=== PATIENT | male | born 1935 | race Caucasian/White ===

== ENCOUNTER 2017-06-24 17:28 | Emergency (ER) | END 2017-06-24 18:54 | disposition left against medical advice (07) ==

== ENCOUNTER 2017-11-28 07:51 | Inpatient (IN) | END 2017-12-02 12:30 | disposition home health service (06) | DRG 292 ==

== ENCOUNTER 2018-06-25 09:41 | Observation (INO) | payer MEDICARE, OTHER ==
[~2018-06-25] VITALS: Ht 160 cm; Wt 89.0 kg
[~2018-06-25 09:41] MED LIST: APIX5TAB PO; ASPI-817 PO; CARV12.579 PO; CELE200C PO; DIGO125T PO; FURO40TA4 PO; HYDR-4011 PO; LEVO50TA7 PO; LINA5TAB PO; LISI-313 NGT; METF500T24 PO; NITR0.4T32 SL; ONDA4SOL2 PO; RSV10T PO; TRAM50TA2 PO
[2018-06-25] MEDS ORDERED: LOSA25TA12 ORAL (11:32)
[2018-06-25] MEDS ORDERED: ONDA4TAB14 PO (11:32)
[2018-06-25] MEDS ORDERED: CRES20 PO (11:33)
[2018-06-25] MEDS ORDERED: SPIR25TA PO (11:35)
--- NOTE | 2018-06-25 13:47 | ERD ---
ER Documentation Chief Complaint Chief Complaint PT with intermittent non radiating CP X 15 days, worst today. HPI This is an 82-year-old male with a past medical history of hypertension, hyperlipidemia, diabetes, CHF with an ejection fraction of 35%, mitral and tricuspid valve regurgitation, atrial fibrillation who is presenting for approximately 2 weeks of intermittent waxing and waning mid substernal nonradiating aching pressure-like chest pain, worse last night. The patient endorses some shortness of breath. He is also been fatigued and lightheaded, worsening over the last several weeks. The patient does not endorse any alleviating or exacerbating factors. It is nonexertional. The patient denies feeling sick recently. The patient denies fever or chills. The patient has had no headache or vision changes. The patient does not endorse neck or back pain. The patient denies nausea or vomiting. The patient denies abdominal pain. The patient denies changes to bowel movements or urination. The patient has had no focal deficits. The patient has had no weakness or numbness or tingling to the face or extremities. ROS All systems reviewed and are negative except as per history of present illness. Medications Home Meds Active Scripts Levothyroxine Sodium* (Levothyroxine Sodium*) 50 Mcg Tablet, 50 MCG PO BEFORE BREAKFAST for 30 Days, #30 TAB Prov:SIS ROLLINS MD 12/02/17 Digoxin* (Digitek*) 125 Mcg Tablet, 0.125 MG PO DAILY@13 for 30 Days, #30 TAB 6 Refills Prov:SIS ROLLINS MD 12/02/17 Apixaban* (Eliquis*) 5 Mg Tablet, 5 MG PO BID for 30 Days, #60 TAB 6 Refills Prov:SIS ROLLINS MD 12/02/17 Reported Medications Spironolactone* (Aldactone*) 25 Mg Tablet, 25 MG PO BID, #60 TAB 06/25/18 Rosuvastatin Calcium* (Crestor*) 20 Mg Tablet, 20 MG PO QHS, #30 TAB 06/25/18 Ondansetron (Ondansetron Odt) 4 Mg Tab.rapdis, 4 MG PO Q6H PRN for NAUSEA AND/OR VOMITING, TAB 06/25/18 Losartan Potassium* (Losartan Potassium*) 25 Mg Tablet, 1 TAB ORAL DAILY 06/25/18 Nitroglycerin* (Nitroglycerin* SL) 0.4 Mg Tab.subl, 0.4 MG SL Q5MIN PRN for CHEST PAIN, BOTTLE 11/28/17 Metformin Hcl* (Metformin Hcl*) 500 Mg Tablet, 500 MG PO WITH BREAKFAST, #30 TAB 11/28/17 Discontinued Reported Medications Tramadol HCl (Tramadol HCl) 50 Mg Tablet, 50 MG PO Q8H PRN for PAIN LEVEL 1-5, #120 TAB 11/28/17 Aspirin* (Aspirin* EC) 81 Mg Tablet.dr, 81 MG PO DAILY, TAB 11/28/17 Linagliptin (TRADJENTA) 5 Mg Tablet, 5 MG PO, TAB 11/28/17 Celecoxib* (Celebrex*) 200 Mg Capsule, 200 MG PO BID, CAP 11/28/17 Rosuvastatin Calcium* (Crestor*) 10 Mg Tablet, 10 MG PO QHS, #30 TAB 11/28/17 Hydrocodone/Acetaminophen (Sanderson 5-325 Tablet) 1 Each Tablet, 1 EACH PO Q6 PRN for PAIN, TAB 11/28/17 Ondansetron HCl (Zofran) 4 Mg/5 Ml Solution, 4 MG PO Q8 PRN for NAUSEA 11/28/17 Discontinued Scripts Furosemide* (Furosemide*) 40 Mg Tablet, 40 MG PO DAILY for 30 Days, #30 TAB 6 Refills Prov:SIS ROLLINS MD 12/02/17 Lisinopril* (Lisinopril*) 5 Mg Tablet, 5 MG NGT DAILY for 30 Days, #30 TAB 6 Refills Prov:SIS ROLLINS MD 12/02/17 Carvedilol* (Carvedilol*) 12.5 Mg Tablet, 12.5 MG PO BID for 30 Days, #60 TAB 6 Refills Prov:SIS ROLLINS MD 12/02/17 Allergies Allergies: Coded Allergies: No Known Allergy (Unverified , 06/25/18) PMhx/Soc Medical and Surgical Hx: pt denies Surgical Hx History of Surgery: No Anesthesia Reaction: No Hx Neurological Disorder: No Hx Respiratory Disorders: No Hx Cardiac Disorders: Yes (Hypertension, hyperlipidemia, diabetes, heart failure with an EF of 35%, atrial fibrillation) Hx Psychiatric Problems: No Hx Miscellaneous Medical Probl: Yes (Hypothyroidism) Hx Alcohol Use: No Hx Substance Use: No Hx Tobacco Use: No Smoking Status: Former smoker FmHx Family History: No diabetes Physical Exam Vitals Vital Signs Date Temp Pulse Resp B/P (MAP) Pulse Ox O2 O2 Flow FiO2 Time Delivery Rate 06/25/18 97.7 83 16 110/97 100 Room Air 14:00 (101) 06/25/18 89 121/83 100 11:41 (96) 06/25/18 Nasal 3 11:04 Cannula 06/25/18 97.7 69 18 172/71 97 09:45 (104) Physical Exam Const: No apparent distress, well-developed, well-nourished Head: Normocephalic, Atraumatic Eyes: Normal Conjunctiva. Extraocular movements intact. Pupils equal, round and reactive to light ENT: Normal External Ears, Nose and Mouth. Neck: Full range of motion. No meningismus. Resp: Bibasilar rales. No wheezes or rhonchi Cardio: Irregular regular rhythm. Regular rate. No murmurs, rubs or gallops Abd: Soft, non tender, non distended. Normal bowel sounds Skin: No petechiae or rashes Back: No midline tenderness. No CVA tenderness Ext: No cyanosis. Bilateral lower extremity 1+ pitting edema. Neur: Awake and alert, oriented 4. Cranial nerves intact. No facial droop. Normal strength, sensation and coordination. Psych: Normal Mood and Affect Result Diagram: 06/25/18 1100 06/25/18 1100 Results 24 hrs Laboratory Tests Test 06/25/18 11:00 White Blood Count 6.4 10^3/ul Red Blood Count 4.53 10^6/ul Hemoglobin 14.3 g/dl Hematocrit 42.3 % Mean Corpuscular Volume 93.4 fl Mean Corpuscular Hemoglobin 31.6 pg Mean Corpuscular Hemoglobin Concent 33.8 g/dl Red Cell Distribution Width 13.7 % Platelet Count 134 10^3/UL Mean Platelet Volume 10.5 fl Immature Granulocytes % 0.600 % Neutrophils % 70.7 % Lymphocytes % 17.9 % Monocytes % 7.9 % Eosinophils % 2.4 % Basophils % 0.5 % Nucleated Red Blood Cells % 0.0 /100WBC Immature Granulocytes # 0.040 10^3/ul Neutrophils # 4.5 10^3/ul Lymphocytes # 1.1 10^3/ul Monocytes # 0.5 10^3/ul Eosinophils # 0.2 10^3/ul Basophils # 0.0 10^3/ul Nucleated Red Blood Cells # 0.0 10^3/ul Prothrombin Time 14.6 Sec Prothrombin Time Ratio 1.1 INR International Normalized Ratio 1.13 Sodium Level 141 mmol/L Potassium Level 4.6 mmol/L Chloride Level 104 mmol/L Carbon Dioxide Level 29 mmol/L Anion Gap 8 Blood Urea Nitrogen 29 mg/dl Creatinine 1.12 mg/dl Est Glomerular Filtrat Rate mL/min mL/min Glucose Level 140 mg/dl Calcium Level 9.7 mg/dl Troponin I < 0.012 ng/ml B-Type Natriuretic Peptide 349 PG/ML Procedures/MDM MDM The patient's presentation warrants further investigation. Previous medical records, if available, were reviewed. LABS The patient's laboratory testing was obtained and reviewed. No emergent treatment was required unless described below. CBC: No E/o systemic infection or severe anemia. Mild thrombocytopenia. Chemistry: No E/o severe acidosis or alkalosis or renal failure or diabetic ketoacidosis. Elevated BUN, potentially related to intravascular depletion from diuresis from heart failure. PT/INR: No E/o significant coagulopathy Troponin: No E/o acute ischemia BNP: No E/o heart failure EKG EKG read by me: Rate/Rhythm: Atrial fibrillation at 100 bpm. Intervals: Normal QRS and QTc. No P waves. [place]: Normal Impression: No evidence of acute ischemia. Atrial fibrillation IMAGING Imaging and Radiology interpretation reviewed. CXR FINDINGS: There is mild cardiomegaly. There is mild pulmonary vascular conges tion. There are bilateral perihilar and lower lobe increased interstitial changes. There is no pleural effusion. There is mild elevation of the right diaphragm. The thoracic aorta is calcified. There is no pneumothorax. IMPRESSION: Mild cardiomegaly with pulmonary vascular congestion. Electronically viewed and signed by Chinmay Hector MD on 06/25/2018 11:36 TREATMENT/DISPOSITION The patient presents for chest pain, shortness of breath and increasing fatigue. I do not suspect acute coronary syndrome given the negative troponin and lack of significant ischemic changes on the EKG. That said, I did opt to give the patient does of aspirin as he is complaining of chest pain. I am also concerned about worsening heart failure. The patient's symptoms have been progressively getting worse over the last 2 weeks. The patient's family has attempted to control his symptoms at home, but they feel that they are no longer able to do so. The patient's BNP is unremarkable. However, there is evidence of heart failure clinically and radiographically. The patient has significant cardiac disease, and I do not feel that the patient can be managed in an outpatient setting. The patient was given a dose of Lasix in the emergency department. The patient's chest xray does not reveal pneumonia or pneumothorax or pleural effusions. The patient does not have a widened mediastinum and does not have signs or symptoms concerning for thoracic aortic aneurysm or dissection. The patient does not have pneumomediastinum or signs concerning for esophageal tear or rupture. The patient has no clinical or radiographic signs of pericardial effusion or tamponade. The patient does not have pneumoperitoneum and I have decreased suspicion of viscus perforation as possible referred pain. The patient does not have a diagnosis of COPD and is not wheezing today. The patient is not tachypneic or hypoxic. The patient is breathing comfortably and without pleuritic pain. The patient is not on hormonal therapy. The patient has no history of clotting or bleeding disorders. The patient has no calf tenderness. The patient has had no hemoptysis. I have decreased suspicion for PE. ADMISSION At this time, I feel that the patient requires admission for further evaluation and management. The patient will be admitted to panel in accordance with the patient's insurance. The patient was accepted by Dr. Duarte at 2:39 PM on June 25, 2018. Disclaimer: Inadvertent spelling and grammatical errors are likely due to EHR/dictation software use and do not reflect on the overall quality of patient care. Note that the electronic time recorded on this note does not necessarily reflect the actual time of the patient encounter. Departure Diagnosis: Primary Impression: Chest pain Chest pain type: unspecified Qualified Codes: R07.9 - Chest pain, unspecified Additional Impressions: CHF (congestive heart failure) Heart failure type: unspecified Heart failure chronicity: acute on chronic Qualified Codes: I50.9 - Heart failure, unspecified Thrombocytopenia Atrial fibrillation Atrial fibrillation type: unspecified Qualified Codes: I48.91 - Unspecified atrial fibrillation Elevated BUN Failure to thrive in adult Condition: RAÚL Shell MD June 25, 2018 13:47
[2018-06-25] MEDS ORDERED: ACETAMINOPHEN 325 MG TAB PO PRN ×2 (15:00)
[2018-06-25] MEDS ORDERED: NACL 0.9% 3 ML SYG IV SCH (15:00)
[2018-06-25] MEDS ORDERED: NITROGLYCERIN (SL) 0.4 MG TAB SL PRN (15:00)
[2018-06-25] MEDS ORDERED: HYDROCODONE/APAP (5/325) TAB PO PRN (15:00)
[2018-06-25] MEDS ORDERED: BISACODYL (EC) 5 MG TAB PO PRN (15:00)
[2018-06-25] MEDS ORDERED: ONDANSETRON 4 MG INJ IV PRN (15:00)
[2018-06-25] MEDS ORDERED: FUROSEMIDE 40 MG INJ IV ONE (15:00)
[2018-06-25] MEDS ORDERED: ALBUTEROL/IPRATROPIUM (NEB) 3 ML AMP HHN PRN (15:00)
[2018-06-25] MEDS ORDERED: ASPIRIN 81 MG TAB PO ONE (15:00)
[2018-06-25] MEDS ORDERED: morphine 2 MG INJ IV PRN (15:00)
--- NOTE | 2018-06-25 15:09 | HP ---
Date/Time of Note Date/Time of Note DATE: 06/25/18 TIME: 15:09 Assessment/Plan VTE Prophylaxis Pharmacological prophylaxis: other Assessment/Plan Hospital Course Patient is a male with a past medical history significant for CHF with ejection fraction of 35%, mitral and tricuspid valve regurgitation, hypertension, this lipidemia, diabetes mellitus, A. fib on Eliquis who presents to [facility] for 2 weeks of intermittent chest pain. Patient states the pain is worse at night, nonradiating, substernal, some shortness of breath with exertion. Patient also feels occasionally weak and lightheaded and has been progressively getting worse. Patient denies dizziness, syncope, abdominal pain, nausea, vomiting, leg pain, bowel or bladder dysfunction. Objective Physical exam General: Patient is laying in bed and answers questions appropriately Mentation: Patient is alert and oriented 4, Head: Normocephalic atraumatic Eyes: EOMI, pupils reactive to light Neck: Supple, nontender, midline Respiratory: Clear to auscultation bilaterally Cardiovascular: regular rate, no obvious murmurs Gastrointestinal: non-tender to palpation, bowel sounds heard. Neurological: Moves all extremities spontaneously Skin: No new skin lesions Assessment and plan Chest pain -Rule out ACS -Cardiology consulted -Trend troponins -Echo -EKG noted -Statin, aspirin CHF -Mild shortness of breath, Lasix given in the ED -Questionable exacerbation -We will defer to cardiology for additional continue diuretics -BNP very mildly elevated however chest xray does show some edema -Patient not having significant respiratory distress or any respiratory distress at this point. Acute hypoxic respiratory distress -Significantly resolved -Likely secondary to above CHF and chest pain -DuoNeb, budesonide A. fib -Continue Eliquis -Rate controlled Diabetes mellitus negative insulin while in house Hypertension -Continue home meds Dyslipidemia -Continue home meds Disposition -Continue nebulizers, awaiting cardiology consultation, PT evaluation Result Diagram: 06/25/18 1100 06/25/18 1100 Results 24hrs Laboratory Tests Test 06/25/18 11:00 White Blood Count 6.4 # Red Blood Count 4.53 L Hemoglobin 14.3 Hematocrit 42.3 Mean Corpuscular Volume 93.4 Mean Corpuscular Hemoglobin 31.6 Mean Corpuscular Hemoglobin Concent 33.8 Red Cell Distribution Width 13.7 Platelet Count 134 L Mean Platelet Volume 10.5 H Immature Granulocytes % 0.600 H Neutrophils % 70.7 Lymphocytes % 17.9 Monocytes % 7.9 Eosinophils % 2.4 Basophils % 0.5 Nucleated Red Blood Cells % 0.0 Immature Granulocytes # 0.040 H Neutrophils # 4.5 Lymphocytes # 1.1 Monocytes # 0.5 Eosinophils # 0.2 Basophils # 0.0 Nucleated Red Blood Cells # 0.0 Prothrombin Time 14.6 Prothrombin Time Ratio 1.1 INR International Normalized Ratio 1.13 Sodium Level 141 Potassium Level 4.6 Chloride Level 104 Carbon Dioxide Level 29 Anion Gap 8 Blood Urea Nitrogen 29 H Creatinine 1.12 Est Glomerular Filtrat Rate mL/min Glucose Level 140 Calcium Level 9.7 Troponin I < 0.012 B-Type Natriuretic Peptide 349 HPI/ROS Admit Date/Time Admit Date/Time PMH/Family/Social Past Medical History Coded Allergies: No Known Allergy (Unverified , 06/25/18) Past Surgical History Past Surgical Hx: other Family History Significant Family History: no pertinent family hx Social History Smoking Status: Former smoker Exam/Review of Systems Vital Signs Vitals Vital Signs Date Temp Pulse Resp B/P (MAP) Pulse Ox O2 O2 Flow FiO2 Time Delivery Rate 06/25/18 97.7 83 16 110/97 100 Room Air 14:00 (101) 06/25/18 3 11:04 JANI BAJWA June 25, 2018 15:09
[2018-06-25] MEDS ORDERED: DEXTROSE 50% 50 ML SYRINGE IV PRN ×2 (15:30)
[2018-06-25] MEDS ORDERED: GLUCOSE GEL 15 GRAM TUBE PO PRN ×2 (15:30)
[2018-06-25] MEDS ORDERED: GLUCAGON 1 MG INJ IM PRN (15:30)
[2018-06-25] MEDS ORDERED: GLUCOSE GEL 15 GRAM TUBE BUCCAL PRN (15:30)
[2018-06-25 16:08] VITALS: Ht 160 cm; Wt 89.0 kg
[2018-06-25 16:34] VITALS: BP 145/79; PULSE 83; RESP 18
--- NOTE | 2018-06-25 16:46 | CONDCODE ---
Medicare Criteria-> INP to OBS Patient still in hospital: Yes SI/IS Criteria met: Yes Attending MD agrees w/change: Yes Order entered in Pt. record: Yes Pt. does not meet Inp Criteria: Yes Medicare Inp->Obs Criteria met: Yes UR Phys Advisor eSign required: Yes I personally scribed for JANI BAJWA ([email or web address]) on 06/25/18 at 16:46. Electronically submitted by Vishnu Villar [facility] ([facility]). JANI BAJWA June 25, 2018 16:46
--- NOTE | 2018-06-25 16:46 | CONDCODE ---
Medicare Criteria-> INP to OBS Patient still in hospital: Yes SI/IS Criteria met: Yes Attending MD agrees w/change: Yes Order entered in Pt. record: Yes Pt. does not meet Inp Criteria: Yes Medicare Inp->Obs Criteria met: Yes UR Phys Advisor eSign required: Yes I personally scribed for BRISA RAMIREZ MD ([email or web address]) on 06/25/18 at 16:46. Electronically submitted by Vishnu Villar [facility] ([facility]). BRISA RAMIREZ MD June 25, 2018 16:46
[2018-06-25 16:50] VITALS: PULSE 121
[2018-06-25] MEDS ORDERED: INSULIN ASPART [NOVOLOG] 3 ML PEN SC SCH (17:35)
--- NOTE | 2018-06-25 18:13 | CONS ---
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 -Initial cardiac enzymes are negative, ECG with no significant ischemic abnormalities -We will continue IV diuretics, check serial cardiac enzymes, beta-erasmo, afterload reducing agents -If serial cardiac enzymes are negative, restart anticoagulation Consultation Date/Type/Reason Admit Date/Time Type of Consult Cardiology Reason for Consultation Shortness of breath and chest pain Date/Time of Note DATE: 06/25/18 TIME: 18:07 Hx of Present Illness This is an 82-year-old male with past medical history of congestive heart failure, hypertension who presents with multiple complaints. He has been having intermittent shortness of breath over the past few weeks. Symptoms are times with with exertion and improved at rest but not always consistent. He has been having lower extremity edema was going on for months and is not worsened. He does complain of chest discomfort. This pain is worse with palpation of the chest wall movement of his left arm. Exertion does not worsen his chest discomfort. Denies any dizziness, fevers or chills. He does complain of occasional cough. He denies seeing a correction officer supervisor as an outpatient since his last discharge. 12 point review of systems was performed with all pertinent positives and negatives mentioned above and all else is negative Past Medical History Atrial fibrillation Medical History: congestive heart failure, high cholesterol, hypertension Home Meds Active Scripts Levothyroxine Sodium* (Levothyroxine Sodium*) 50 Mcg Tablet, 50 MCG PO BEFORE BREAKFAST for 30 Days, #30 TAB Prov:SIS ROLLINS MD 12/02/17 Digoxin* (Digitek*) 125 Mcg Tablet, 0.125 MG PO DAILY@13 for 30 Days, #30 TAB 6 Refills Prov:SIS ROLLINS MD 12/02/17 Apixaban* (Eliquis*) 5 Mg Tablet, 5 MG PO BID for 30 Days, #60 TAB 6 Refills Prov:SIS ROLLINS MD 12/02/17 Reported Medications Spironolactone* (Aldactone*) 25 Mg Tablet, 25 MG PO BID, #60 TAB 06/25/18 Rosuvastatin Calcium* (Crestor*) 20 Mg Tablet, 20 MG PO QHS, #30 TAB 06/25/18 Ondansetron (Ondansetron Odt) 4 Mg Tab.rapdis, 4 MG PO Q6H PRN for NAUSEA AND/OR VOMITING, TAB 06/25/18 Losartan Potassium* (Losartan Potassium*) 25 Mg Tablet, 1 TAB ORAL DAILY 06/25/18 Nitroglycerin* (Nitroglycerin* SL) 0.4 Mg Tab.subl, 0.4 MG SL Q5MIN PRN for CHEST PAIN, BOTTLE 11/28/17 Metformin Hcl* (Metformin Hcl*) 500 Mg Tablet, 500 MG PO WITH BREAKFAST, #30 TAB 11/28/17 Discontinued Reported Medications Tramadol HCl (Tramadol HCl) 50 Mg Tablet, 50 MG PO Q8H PRN for PAIN LEVEL 1-5, #120 TAB 11/28/17 Aspirin* (Aspirin* EC) 81 Mg Tablet.dr, 81 MG PO DAILY, TAB 11/28/17 Linagliptin (TRADJENTA) 5 Mg Tablet, 5 MG PO, TAB 11/28/17 Celecoxib* (Celebrex*) 200 Mg Capsule, 200 MG PO BID, CAP 11/28/17 Rosuvastatin Calcium* (Crestor*) 10 Mg Tablet, 10 MG PO QHS, #30 TAB 11/28/17 Hydrocodone/Acetaminophen ([place] 5-325 Tablet) 1 Each Tablet, 1 EACH PO Q6 PRN for PAIN, TAB 11/28/17 Ondansetron HCl (Zofran) 4 Mg/5 Ml Solution, 4 MG PO Q8 PRN for NAUSEA 11/28/17 Discontinued Scripts Furosemide* (Furosemide*) 40 Mg Tablet, 40 MG PO DAILY for 30 Days, #30 TAB 6 Refills Prov:SIS ROLLINS MD 12/02/17 Lisinopril* (Lisinopril*) 5 Mg Tablet, 5 MG NGT DAILY for 30 Days, #30 TAB 6 Refills Prov:SIS ROLLINS MD 12/02/17 Carvedilol* (Carvedilol*) 12.5 Mg Tablet, 12.5 MG PO BID for 30 Days, #60 TAB 6 Refills Prov:SIS ROLLINS MD 12/02/17 Medications Current Medications Ondansetron HCl (Zofran Inj) 4 mg ER BRIDGE PRN IV NAUSEA/VOMITING; Start 06/25/18 at 15:00; Stop 06/26/18 at 14:59 Acetaminophen (Tylenol Tab) 650 mg ER BRIDGE PRN PO .MILD PAIN 1-3 OR TEMP; Start 06/25/18 at 15:00; Stop 06/26/18 at 14:59 IV Flush (NS 3 ml) 3 ml PER PROTOCOL IV ; Start 06/25/18 at 15:00 Aspirin (Aspirin) 81 mg DAILY PO ; Start 06/26/18 at 09:00 Nitroglycerin (Nitroglycerin (Sl Tab) 0.4 Mg) 1 tab Q5M PRN SL .CHEST PAIN; Start 06/25/18 at 15:00 Acetaminophen (Tylenol Tab) 650 mg Q6H PRN PO .PAIN 1-3 OR TEMP; Start 06/25/18 at 15:00 Acetaminophen/ Hydrocodone Bitart ([place] (5/325)) 1 tab Q6H PRN PO .PAIN 4-6; Start 06/25/18 at 15:00 Morphine Sulfate (morphine) 2 mg Q4H PRN IV .PAIN 7-10; Start 06/25/18 at 15:00 Bisacodyl (Dulcolax) 5 mg DAILY PRN PO .CONSTIPATION; Start 06/25/18 at 15:00 Albuterol/ Ipratropium (Duoneb) 3 ml Q6HWA RESP THERAPY HHN ; Start 06/25/18 at 20:00 Albuterol/ Ipratropium (Duoneb) 3 ml Q2H RESP THERAPY PRN HHN shortness of breath; Start 06/25/18 at 15:00 Diagnostic Test (Pha) (Accu-Chek) 1 ea 02 XX ; Start 06/26/18 at 02:00 Insulin Aspart (Novolog Insulin Pen) NOVOLOG *MILD* ALGORITHM WITH MEALS BEDTIME SC ; Start 06/25/18 at 17:35 Digoxin (Digoxin) 0.125 mg DAILY@13 PO ; Start 06/26/18 at 13:00 Levothyroxine Sodium (Synthroid) 50 mcg BEFORE BREAKFAST PO ; Start 06/26/18 at 07:00 Losartan Potassium (Cozaar) 25 mg DAILY PO ; Start 06/26/18 at 09:00 Spironolactone (Aldactone) 25 mg BID PO ; Start 06/25/18 at 21:00 Atorvastatin Calcium (Lipitor) 80 mg HS PO ; Start 06/25/18 at 21:00 Miscellaneous Information 1 ea NOTE XX ; Start 06/25/18 at 15:30 Glucose (Glutose) 15 gm Q15M PRN PO DECREASED GLUCOSE; Start 06/25/18 at 15:30 Glucose (Glutose) 22.5 gm Q15M PRN PO DECREASED GLUCOSE; Start 06/25/18 at 15:30 Dextrose (D50w Syringe) 25 ml Q15M PRN IV DECREASED GLUCOSE; Start 06/25/18 at 15:30 Dextrose (D50w Syringe) 50 ml Q15M PRN IV DECREASED GLUCOSE; Start 06/25/18 at 15:30 Glucagon (Glucagen) 1 mg Q15M PRN IM DECREASED GLUCOSE; Start 06/25/18 at 15:30 Glucose (Glutose) 15 gm Q15M PRN BUCCAL DECREASED GLUCOSE; Start 06/25/18 at 1 5:30 Allergies: Coded Allergies: No Known Allergy (Unverified , 06/25/18) Past Surgical History Past Surgical Hx: other Family History Significant Family History: no pertinent family hx Social History Smoking Status: Never smoker Exam/Review of Systems Vital Signs Vitals Vital Signs Date Temp Pulse Resp B/P (MAP) Pulse Ox O2 O2 Flow FiO2 Time Delivery Rate 06/25/18 121 16:50 06/25/18 97.8 18 145/79 99 Room Air 2.0 16:34 (101) Exam Constitutional: alert, oriented (No apparent distress, eating dinner, no dyspnea with speaking) Head: normocephalic Respiratory: other (Coarse breath sounds bilaterally, mild scattered crackles, no wheezing) Cardiovascular: irregular rhythm, systolic murmur, other Gastrointestinal: soft, non-tender, bowel sounds Extremities: edema (Trace) Labs Result Diagram: 06/25/18 1100 06/25/18 1100 Results 24hrs Laboratory Tests Test 06/25/18 11:00 06/25/18 17:16 White Blood Count 6.4 # Red Blood Count 4.53 L Hemoglobin 14.3 Hematocrit 42.3 Mean Corpuscular Volume 93.4 Mean Corpuscular Hemoglobin 31.6 Mean Corpuscular Hemoglobin Concent 33.8 Red Cell Distribution Width 13.7 Platelet Count 134 L Mean Platelet Volume 10.5 H Immature Granulocytes % 0.600 H Neutrophils % 70.7 Lymphocytes % 17.9 Monocytes % 7.9 Eosinophils % 2.4 Basophils % 0.5 Nucleated Red Blood Cells % 0.0 Immature Granulocytes # 0.040 H Neutrophils # 4.5 Lymphocytes # 1.1 Monocytes # 0.5 Eosinophils # 0.2 Basophils # 0.0 Nucleated Red Blood Cells # 0.0 Prothrombin Time 14.6 Prothrombin Time Ratio 1.1 INR International Normalized Ratio 1.13 Sodium Level 141 Potassium Level 4.6 Chloride Level 104 Carbon Dioxide Level 29 Anion Gap 8 Blood Urea Nitrogen 29 H Creatinine 1.12 Est Glomerular Filtrat Rate mL/min Glucose Level 140 Calcium Level 9.7 Troponin I < 0.012 B-Type Natriuretic Peptide 349 Bedside Glucose 114 Imaging Imaging Atrial fibrillation at 100 bpm, no Q waves, nonspecific ST abnormalities Medications Medications Current Medications Ondansetron HCl (Zofran Inj) 4 mg ER BRIDGE PRN IV NAUSEA/VOMITING; Start 06/25/18 at 15:00; Stop 06/26/18 at 14:59 Acetaminophen (Tylenol Tab) 650 mg ER BRIDGE PRN PO .MILD PAIN 1-3 OR TEMP; Start 06/25/18 at 15:00; Stop 06/26/18 at 14:59 IV Flush (NS 3 ml) 3 ml PER PROTOCOL IV ; Start 06/25/18 at 15:00 Aspirin (Aspirin) 81 mg DAILY PO ; Start 06/26/18 at 09:00 Nitroglycerin (Nitroglycerin (Sl Tab) 0.4 Mg) 1 tab Q5M PRN SL .CHEST PAIN; Start 06/25/18 at 15:00 Acetaminophen (Tylenol Tab) 650 mg Q6H PRN PO .PAIN 1-3 OR TEMP; Start 06/25/18 at 15:00 Acetaminophen/ Hydrocodone Bitart ([place] (5/325)) 1 tab Q6H PRN PO .PAIN 4-6; Start 06/25/18 at 15:00 Morphine Sulfate (morphine) 2 mg Q4H PRN IV .PAIN 7-10; Start 06/25/18 at 15:00 Bisacodyl (Dulcolax) 5 mg DAILY PRN PO .CONSTIPATION; Start 06/25/18 at 15:00 Albuterol/ Ipratropium (Duoneb) 3 ml Q6HWA RESP THERAPY HHN ; Start 06/25/18 at 20:00 Albuterol/ Ipratropium (Duoneb) 3 ml Q2H RESP THERAPY PRN HHN shortness of breath; Start 06/25/18 at 15:00 Diagnostic Test (Pha) (Accu-Chek) 1 ea 02 XX ; Start 06/26/18 at 02:00 Insulin Aspart (Novolog Insulin Pen) NOVOLOG *MILD* ALGORITHM WITH MEALS BEDTIME SC ; Start 06/25/18 at 17:35 Digoxin (Digoxin) 0.125 mg DAILY@13 PO ; Start 06/26/18 at 13:00 Levothyroxine Sodium (Synthroid) 50 mcg BEFORE BREAKFAST PO ; Start 06/26/18 at 07:00 Losartan Potassium (Cozaar) 25 mg DAILY PO ; Start 06/26/18 at 09:00 Spironolactone (Aldactone) 25 mg BID PO ; Start 06/25/18 at 21:00 Atorvastatin Calcium (Lipitor) 80 mg HS PO ; Start 06/25/18 at 21:00 Miscellaneous Information 1 ea NOTE XX ; Start 06/25/18 at 15:30 Glucose (Glutose) 15 gm Q15M PRN PO DECREASED GLUCOSE; Start 06/25/18 at 15:30 Glucose (Glutose) 22.5 gm Q15M PRN PO DECREASED GLUCOSE; Start 06/25/18 at 15:30 Dextrose (D50w Syringe) 25 ml Q15M PRN IV DECREASED GLUCOSE; Start 06/25/18 at 15:30 Dextrose (D50w Syringe) 50 ml Q15M PRN IV DECREASED GLUCOSE; Start 06/25/18 at 15:30 Glucagon (Glucagen) 1 mg Q15M PRN IM DECREASED GLUCOSE; Start 06/25/18 at 15:30 Glucose (Glutose) 15 gm Q15M PRN BUCCAL DECREASED GLUCOSE; Start 06/25/18 at 15:30 Zach Reed DO June 25, 2018 18:13
[2018-06-25] MEDS ORDERED: FUROSEMIDE 20 MG INJ IV ONE (18:30)
[2018-06-25 18:35] VITALS: BP 157/88; PULSE 78; RESP 21
--- NOTE | 2018-06-25 18:43 | RADRPT ---
Echocardiogram Report Patient Name: VICE ROGELIONTEPatient ID: [id number] : 1935 (82y 11m)Study Date: 06/25/2018 4:04:16 PM Gender: MAccession #: [id number] Tech: Kim [facility] Location: [facility] Ref.Physician: JANI BAJWA Height(Cm): BSA: Weight(Kg): Quality: AdequateAccount #: Procedures: Echocardiographic Report: Transthoracic echocardiogram with complete 2D, M-Mode, and doppler examination. Indications: Chest Pain. Measurements: 2D/M Mode Doppler Measurement Value Normal Range Measurement Value Normal Range LVIDd 2D 4.5 [ 4.2 - 5.8 ] cm AV Peak Guillaume 1.0 [ 100.0 - 170.0 ] cm/sec LVIDs 2D 3.8 [ 2.5 - 4.0 ] cm AV Peak PG 4.0 [ 2.0 - 9.0 ] mmHg LVPWd 2D 1.1 [ 0.6 - 1.0 ] cm LVOT Peak Guillaume 0.7 [ 70.0 - 110.0 ] cm/sec IVSd 2D 1.6 [ 0.6 - 1.0 ] cm LVOT Peak PG 2.0 [ 2.0 - 6.0 ] mmHg AoR Diam 2D 2.9 [ 2.6 - 3.4 ] cm MV E Peak Guillaume 0.7 [ 60.0 - 130.0 ] cm/sec EDV 2D 90.5 [ 62.0 - 150.0 ] ml MV A Peak Guillaume 0.3 [ 100.0 - 120.0 ] cm/sec ESV 2D 62.0 [ 21.0 - 61.0 ] ml MV E/A 2.5 [ 0.8 - 1.5 ] ratio EF 2D 31.5 [ 52.0 - 72.0 ] percent MV Decel Time 254 [ 104 - 258 ] msec LA Dimen 2D 4.3 [ 3.0 - 4.0 ] cm Lat E` Guillaume 0.1 [ 10.0 - 15.0 ] cm/sec Lateral E/E` 11.3 [ 1.0 - 2.0 ] ratio MV E/A 2.5 [ 0.8 - 1.5 ] ratio TR Peak Guillaume 2.5 [ 100.0 - 280.0 ] cm/sec TR Peak PG 25.0 mmHg RVSP 33.0 [ 10.0 - 36.0 ] mmHg Findings: Left Ventricle: Normal left ventricular cavity size. Sigmoid septum. Severe left ventricular systolic dysfunction. Ejection fraction is visually estimated at 30 %. Tissue Doppler/Mitral Doppler indices are consistent with pseudonormalization with mildly elevated left atrial pressure (Stage II diastolic dysfunction). Right Ventricle: Normal right ventricular size. Normal right ventricular systolic function. Left Atrium: There is mild enlargement of left atrium. Right Atrium: The right atrium is normal in size. Mitral Valve: Mild mitral leaflet calcification. Mild mitral annular calcification. Mild mitral valve regurgitation. Aortic Valve: No hemodynamically significant aortic stenosis by doppler. Aortic cusps appear mildly calcified. Tricuspid Valve: Normal appearance of the tricuspid valve. Estimated peak PA systolic pressure 33 mmHg. There is mild tricuspid regurgitation. Pericardium: Normal pericardium with no significant pericardial effusion. Aorta: Normal aortic root. IVC: Normal size with poor respiratory collapse consistent with elevated right atrial pressure. Conclusions: Normal left ventricular cavity size. Sigmoid septum. Severe left ventricular systolic dysfunction. Ejection fraction is visually estimated at 30 %. Tissue Doppler/Mitral Doppler indices are consistent with pseudonormalization with mildly elevated left atrial pressure (Stage II diastolic dysfunction). Normal right ventricular size. Normal right ventricular systolic function. There is mild enlargement of left atrium. The right atrium is normal in size. Mild mitral valve regurgitation. No hemodynamically significant aortic stenosis by doppler. Estimated peak PA systolic pressure 33 mmHg. There is mild tricuspid regurgitation. Normal pericardium with no significant pericardial effusion. Electronically Signed By: Zach Reed 2018-06-25 18:42:18 PDT
[2018-06-25 20:00] VITALS: BP 149/85; PULSE 80; PULSE 87; RESP 20
[2018-06-25] MEDS: INSULIN ASPART [NOVOLOG] 3 ML PEN SC SCH ×2 (20:37→21:00)
[2018-06-25 21:00] VITALS: BP 114/82; RESP 20
[2018-06-25] MEDS ORDERED: ATORVASTATIN 80 MG TAB PO SCH (21:00)
[2018-06-25] MEDS ORDERED: APIXABAN 5 MG TABLET PO SCH (21:00)
[2018-06-25] MEDS: ALBUTEROL/IPRATROPIUM (NEB) 3 ML AMP HHN SCH (21:56)
[2018-06-25] MEDS: APIXABAN 5 MG TABLET PO SCH (22:40)
[2018-06-25] MEDS: SPIRONOLACTONE 25 MG TAB PO SCH (22:50)
[2018-06-26] VITALS: BP 119/65; PULSE 65; RESP 16
[2018-06-26 00:06] VITALS: PULSE 96
[2018-06-26] MEDS ORDERED: ACCU-CHEK XX SCH (02:00)
[2018-06-26 04:00] VITALS: BP 110/67; PULSE 82; RESP 20
[2018-06-26] MEDS ORDERED: LEVOTHYROXINE 50 MCG TAB PO SCH (07:00)
[2018-06-26] MEDS: INSULIN ASPART [NOVOLOG] 3 ML PEN SC SCH (07:35)
[2018-06-26] MEDS: ALBUTEROL/IPRATROPIUM (NEB) 3 ML AMP HHN SCH (08:13)
[2018-06-26] MEDS ORDERED: LOSARTAN 25 MG TAB PO SCH (09:00)
[2018-06-26] MEDS ORDERED: ASPIRIN 81 MG TAB PO SCH (09:00)
[2018-06-26] MEDS ORDERED: FUROSEMIDE 40 MG INJ IV SCH (09:00)
[2018-06-26] MEDS ORDERED: CARV6.2579 PO (10:08)
[2018-06-26] MEDS ORDERED: FURO-110 PO (10:08)
--- NOTE | 2018-06-26 10:11 | PDOCDIS ---
Discharge Instructions CONDITION [id number] Patient Condition: [id number] Stable FOLLOW UP/APPOINTMENTS Follow-up Plan 1. Please follow-up with Dr. Zach Reed, cardiology as soon as possible 2. Please continue all home medications, 2 new medications were started, prescriptions were given to you at discharge 3. Please follow-up with your primary care provider as soon as possible. JANI BAJWA June 26, 2018 10:10
--- NOTE | 2018-06-26 10:13 | DS ---
Date/Time of Note Date/Time of Note DATE: 06/26/18 TIME: 10:13 Discharge Summary Admission/Discharge Info Admit Date/Time June 25, 2018 at 14:43 Discharge Date/Time Patient Condition: Stable Hospital Course Patient is a male with a past medical history significant for congestive heart failure, A. fib on Eliquis who presents to [facility] for shortness of breath and chest pain. ACS was ruled out, cardiology continue to evaluate patient and started patient on a few new heart failure medications. Patient is feeling very well, doing very well with physical therapy, ambulating without any assistance, O2 saturation is well within normal limits without supplemental oxygen. Patient will be now be discharged to follow-up outpatient with Dr. Reed, cardiology, for outpatient stress test and further management for congestive heart failure. Patient feeling well and instructed to continue his medications as well as the new medications that were given to him. Discharge diagnosis Chest pain, likely musculoskeletal, resolved Congestive heart failure, acute on chronic systolic, resolving Acute hypoxic respiratory distress, resolved Atrial fibrillation Hypertension Diabetes, type II Dyslipidemia Home Meds Active Scripts Furosemide* (Lasix*) 20 Mg Tablet, 20 MG PO DAILY, #30 TAB 1 Refill Prov:JANI BAJWA 06/26/18 Carvedilol* (Carvedilol*) 6.25 Mg Tablet, 6.25 MG PO BID for 30 Days, #60 TAB 1 Refill Prov:JANI BAJWA 06/26/18 Levothyroxine Sodium* (Levothyroxine Sodium*) 50 Mcg Tablet, 50 MCG PO BEFORE BREAKFAST for 30 Days, #30 TAB Prov:SIS ROLLINS MD 12/02/17 Digoxin* (Digitek*) 125 Mcg Tablet, 0.125 MG PO DAILY@13 for 30 Days, #30 TAB 6 Refills Prov:SIS ROLLINS MD 12/02/17 Apixaban* (Eliquis*) 5 Mg Tablet, 5 MG PO BID for 30 Days, #60 TAB 6 Refills Prov:SIS ROLLINS MD 12/02/17 Reported Medications Spironolactone* (Aldactone*) 25 Mg Tablet, 25 MG PO BID, #60 TAB 06/25/18 Rosuvastatin Calcium* (Crestor*) 20 Mg Tablet, 20 MG PO QHS, #30 TAB 06/25/18 Ondansetron (Ondansetron Odt) 4 Mg Tab.rapdis, 4 MG PO Q6H PRN for NAUSEA AND/OR VOMITING, TAB 06/25/18 Losartan Potassium* (Losartan Potassium*) 25 Mg Tablet, 1 TAB ORAL DAILY 06/25/18 Nitroglycerin* (Nitroglycerin* SL) 0.4 Mg Tab.subl, 0.4 MG SL Q5MIN PRN for CHEST PAIN, BOTTLE 11/28/17 Metformin Hcl* (Metformin Hcl*) 500 Mg Tablet, 500 MG PO WITH BREAKFAST, #30 TAB 11/28/17 Discontinued Reported Medications Tramadol HCl (Tramadol HCl) 50 Mg Tablet, 50 MG PO Q8H PRN for PAIN LEVEL 1-5, #120 TAB 11/28/17 Aspirin* (Aspirin* EC) 81 Mg Tablet.dr, 81 MG PO DAILY, TAB 11/28/17 Linagliptin (TRADJENTA) 5 Mg Tablet, 5 MG PO, TAB 11/28/17 Celecoxib* (Celebrex*) 200 Mg Capsule, 200 MG PO BID, CAP 11/28/17 Rosuvastatin Calcium* (Crestor*) 10 Mg Tablet, 10 MG PO QHS, #30 TAB 11/28/17 Hydrocodone/Acetaminophen ([place] 5-325 Tablet) 1 Each Tablet, 1 EACH PO Q6 PRN for PAIN, TAB 11/28/17 Ondansetron HCl (Zofran) 4 Mg/5 Ml Solution, 4 MG PO Q8 PRN for NAUSEA 11/28/17 Discontinued Scripts Furosemide* (Furosemide*) 40 Mg Tablet, 40 MG PO DAILY for 30 Days, #30 TAB 6 Refills Prov:SIS ROLLINS MD 12/02/17 Lisinopril* (Lisinopril*) 5 Mg Tablet, 5 MG NGT DAILY for 30 Days, #30 TAB 6 Refills Prov:SIS ROLLINS MD 12/02/17 Carvedilol* (Carvedilol*) 12.5 Mg Tablet, 12.5 MG PO BID for 30 Days, #60 TAB 6 Refills Prov:SIS ROLLINS MD 12/02/17 Follow-up Plan 1. Please follow-up with Dr. Zach Reed, cardiology as soon as possible 2. Please continue all home medications, 2 new medications were started, prescriptions were given to you at discharge 3. Please follow-up with your primary care provider as soon as possible. Primary Care Provider Not On Staff Doctor Time spent on discharge: > 30 minutes Pending Labs Laboratory Tests Test 06/25/18 11:00 06/25/18 17:16 06/25/18 17:44 06/25/18 21:06 White Blood 6.4 Count 10^3/ul (4.8-10 .8) Red Blood 4.53 Count 10^6/ul (4.70-6 .10) Hemoglobin 14.3 g/dl (14.0-18.0 ) Hematocrit 42.3 % (42.0-52.0) Mean 93.4 Corpuscular fl (82.0-101.0) Volume Mean 31.6 Corpuscular pg (29.0-33.0) Hemoglobin Mean 33.8 Corpuscular g/dl (32.0-37.0 Hemoglobin Conc ) ent Red Cell 13.7 Distribution % (11.5-14.5) Width Platelet Count 134 10^3/UL (140-41 5) Mean Platelet 10.5 Volume fl (7.4-10.4) Immature 0.600 Granulocytes % % (0.001-0.429) Neutrophils % 70.7 % (39.0-77.0) Lymphocytes % 17.9 % (15.0-51.0) Monocytes % 7.9 % (0.0-11.0) Eosinophils % 2.4 % (0.0-7.0) Basophils % 0.5 % (0.0-2.0) Nucleated Red 0.0 Blood Cells % /100WBC (0.0-0. 0) Immature 0.040 Granulocytes # 10^3/ul (0.0-0. 031) Neutrophils # 4.5 10^3/ul (1.6-7. 5) Lymphocytes # 1.1 10^3/ul (0.8-2. 9) Monocytes # 0.5 10^3/ul (0.3-0. 9) Eosinophils # 0.2 10^3/ul (0.0-0. 5) Basophils # 0.0 10^3/ul (0.0-0. 1) Nucleated Red 0.0 Blood Cells # 10^3/ul (0.0-0. 0) Prothrombin 14.6 Time Sec (11.9-14.9) Prothrombin 1.1 Time Ratio INR 1.13 International Normalized Rati o Sodium Level 141 mmol/L (135-144 ) Potassium 4.6 Level mmol/L (3.5-5.1 ) Chloride Level 104 mmol/L (97-110) Carbon Dioxide 29 Level mmol/L (21-31) Anion Gap 8 (5-13) Blood Urea 29 mg/dl (7-20) Nitrogen Creatinine 1.12 mg/dl (0.61-1.2 4) Est Glomerular mL/min (>60) Filtrat Rate mL/min Glucose Level 140 mg/dl (70-220) Calcium Level 9.7 mg/dl (8.4-10.2 ) Troponin I < 0.012 < 0.012 ng/ml (0.000-0. ng/ml (0.000-0 120) .120) B-Type 349 Natriuretic PG/ML (0-450) Peptide Bedside 114 118 Glucose mg/dL (70-220) mg/dL (70-220) Creatine 55 Kinase IU/L (23-200) Creatine Kinase 2.4 Index Creatinine 1.34 Kinase MB ng/ml (0.0-2.4 (Mass) ) Test 06/26/18 04:52 06/26/18 08:33 White Blood 6.0 Count 10^3/ul (4.8-10 .8) Red Blood 4.60 Count 10^6/ul (4.70-6 .10) Hemoglobin 14.4 g/dl (14.0-18.0 ) Hematocrit 41.9 % (42.0-52.0) Mean 91.1 Corpuscular fl (82.0-101.0) Volume Mean 31.3 Corpuscular pg (29.0-33.0) Hemoglobin Mean 34.4 Corpuscular g/dl (32.0-37.0 Hemoglobin Conc ) ent Red Cell 13.5 Distribution % (11.5-14.5) Width Platelet Count 135 10^3/UL (140-41 5) Mean Platelet 11.4 Volume fl (7.4-10.4) Immature 0.500 Granulocytes % % (0.001-0.429) Neutrophils % 68.7 % (39.0-77.0) Lymphocytes % 18.4 % (15.0-51.0) Monocytes % 9.1 % (0.0-11.0) Eosinophils % 2.8 % (0.0-7.0) Basophils % 0.5 % (0.0-2.0) Nucleated Red 0.0 Blood Cells % /100WBC (0.0-0. 0) Immature 0.030 Granulocytes # 10^3/ul (0.0-0. 031) Neutrophils # 4.1 10^3/ul (1.6-7. 5) Lymphocytes # 1.1 10^3/ul (0.8-2. 9) Monocytes # 0.6 10^3/ul (0.3-0. 9) Eosinophils # 0.2 10^3/ul (0.0-0. 5) Basophils # 0.0 10^3/ul (0.0-0. 1) Nucleated Red 0.0 Blood Cells # 10^3/ul (0.0-0. 0) Sodium Level 138 mmol/L (135-144 ) Potassium 4.2 Level mmol/L (3.5-5.1 ) Chloride Level 99 mmol/L (97-110) Carbon Dioxide 29 Level mmol/L (21-31) Anion Gap 10 (5-13) Blood Urea 30 mg/dl (7-20) Nitrogen Creatinine 1.21 mg/dl (0.61-1.2 4) Est Glomerular mL/min (>60) Filtrat Rate mL/min Glucose Level 131 mg/dl (70-220) Hemoglobin A1c 6.7 % (0-5.9) Calcium Level 9.6 mg/dl (8.4-10.2 ) Magnesium 1.8 Level mg/dl (1.7-2.5) Total 0.7 Bilirubin mg/dl (0.2-1.3) Direct 0.00 Bilirubin mg/dl (0.00-0.2 0) Indirect 0.7 Bilirubin mg/dl (0-1.1) Aspartate Amino 32 IU/L (15-46) Transf (AST/SGO T) Alanine 20 IU/L (13-69) Aminotransferas e (ALT/SGPT) Alkaline 54 Phosphatase IU/L (42-121) Total Protein 7.7 g/dl (6.1-8.1) Albumin 4.1 g/dl (3.3-4.9) Globulin 3.60 g/dl (1.3-3.2) Albumin/Globuli 1.13 n Ratio Triglycerides 109 Level mg/dl (0-149) Cholesterol 156 Level mg/dl (100-200) LDL 90 mg/dl Cholesterol, Calculated HDL 44 Cholesterol mg/dl (31-75) Cholesterol/HDL 3.5 RATIO Ratio Thyroid 3.880 Stimulating MIU/L (0.465-4. Hormone (TSH) 680) Troponin I < 0.012 ng/ml (0.000-0 .120) JANI BAJWA June 26, 2018 10:13
[2018-06-26] MEDS: SPIRONOLACTONE 25 MG TAB PO SCH (10:35)
[2018-06-26] MEDS: APIXABAN 5 MG TABLET PO SCH (10:35)
--- NOTE | 2018-06-26 10:49 | CONS ---
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 Lasix -Continue carvedilol, ARB -Counseled importance of low-sodium diet -Outpatient cardiology follow-up Consultation Date/Type/Reason Admit Date/Time June 25, 2018 at 14:43 Initial Consult Date Type of Consult Cardiology Date/Time of Note DATE: 06/26/18 TIME: 10:48 24 HR Interval Summary Free Text/Dictation Feeling much better, shortness of breath has improved. Denies chest pain Exam/Review of Systems Vital Signs Vitals Vital Signs Date Temp Pulse Resp B/P (MAP) Pulse Ox O2 O2 Flow FiO2 Time Delivery Rate 06/26/18 76 18 Nasal 2.0 08:23 Cannula 06/26/18 97.8 110/67 98 04:00 (81) Intake and Output 06/25/18 06/25/18 06/26/18 1515:00 23:00 07:00 IntakeIntake Total 520 ml OutputOutput Total 1250 ml BalanceBalance -730 ml Exam Constitutional: alert, oriented (No apparent distress) Head: normocephalic Respiratory: other (Coarse breath sounds bilaterally, no wheezing) Cardiovascular: regular rate and rhythm, systolic murmur (S1-S2 heard) Gastrointestinal: soft, non-tender, bowel sounds Extremities: edema (Trace) Labs Result Diagram: 06/26/18 0452 06/26/18 0452 Results 24hrs Laboratory Tests Test 06/25/18 11:00 06/25/18 17:16 06/25/18 17:44 06/25/18 21:06 White Blood Count 6.4 # Red Blood Count 4.53 L Hemoglobin 14.3 Hematocrit 42.3 Mean Corpuscular 93.4 Volume Mean Corpuscular 31.6 Hemoglobin Mean Corpuscular 33.8 Hemoglobin Concent Red Cell Distribution 13.7 Width Platelet Count 134 L Mean Platelet Volume 10.5 H Immature Granulocytes 0.600 H % Neutrophils % 70.7 Lymphocytes % 17.9 Monocytes % 7.9 Eosinophils % 2.4 Basophils % 0.5 Nucleated Red Blood 0.0 Cells % Immature Granulocytes 0.040 H # Neutrophils # 4.5 Lymphocytes # 1.1 Monocytes # 0.5 Eosinophils # 0.2 Basophils # 0.0 Nucleated Red Blood 0.0 Cells # Prothrombin Time 14.6 Prothrombin Time Ratio 1.1 INR International 1.13 Normalized Ratio Sodium Level 141 Potassium Level 4.6 Chloride Level 104 Carbon Dioxide Level 29 Anion Gap 8 Blood Urea Nitrogen 29 H Creatinine 1.12 Est Glomerular Filtrat Rate mL/min Glucose Level 140 Calcium Level 9.7 Troponin I < 0.012 < 0.012 B-Type Natriuretic 349 Peptide Bedside Glucose 114 118 Creatine Kinase 55 Creatine Kinase Index 2.4 Creatinine Kinase MB 1.34 (Mass) Test 06/26/18 04:52 06/26/18 08:33 White Blood Count 6.0 Red Blood Count 4.60 L Hemoglobin 14.4 Hematocrit 41.9 L Mean Corpuscular 91.1 Volume Mean Corpuscular 31.3 Hemoglobin Mean Corpuscular 34.4 Hemoglobin Concent Red Cell Distribution 13.5 Width Platelet Count 135 L Mean Platelet Volume 11.4 H Immature Granulocytes 0.500 H % Neutrophils % 68.7 Lymphocytes % 18.4 Monocytes % 9.1 Eosinophils % 2.8 Basophils % 0.5 Nucleated Red Blood 0.0 Cells % Immature Granulocytes 0.030 # Neutrophils # 4.1 Lymphocytes # 1.1 Monocytes # 0.6 Eosinophils # 0.2 Basophils # 0.0 Nucleated Red Blood 0.0 Cells # Sodium Level 138 Potassium Level 4.2 Chloride Level 99 Carbon Dioxide Level 29 Anion Gap 10 Blood Urea Nitrogen 30 H Creatinine 1.21 Est Glomerular Filtrat Rate mL/min Glucose Level 131 Hemoglobin A1c 6.7 H Calcium Level 9.6 Magnesium Level 1.8 Total Bilirubin 0.7 Direct Bilirubin 0.00 Indirect Bilirubin 0.7 Aspartate Amino 32 Transf (AST/SGOT) Alanine 20 Aminotransferase (ALT/ SGPT) Alkaline Phosphatase 54 Total Protein 7.7 Albumin 4.1 Globulin 3.60 H Albumin/Globulin Ratio 1.13 Triglycerides Level 109 Cholesterol Level 156 LDL Cholesterol, 90 Calculated HDL Cholesterol 44 Cholesterol/HDL Ratio 3.5 Thyroid Stimulating 3.880 Hormone (TSH) Troponin I < 0.012 Medications Medications Current Medications IV Flush (NS 3 ml) 3 ml PER PROTOCOL IV ; Start 06/25/18 at 15:00 Nitroglycerin (Nitroglycerin (Sl Tab) 0.4 Mg) 1 tab Q5M PRN SL .CHEST PAIN; Start 06/25/18 at 15:00 Acetaminophen (Tylenol Tab) 650 mg Q6H PRN PO .PAIN 1-3 OR TEMP; Start 06/25/18 at 15:00 Acetaminophen/ Hydrocodone Bitart ([place] (5/325)) 1 tab Q6H PRN PO .PAIN 4-6; Start 06/25/18 at 15:00 Morphine Sulfate (morphine) 2 mg Q4H PRN IV .PAIN 7-10; Start 06/25/18 at 15:00 Bisacodyl (Dulcolax) 5 mg DAILY PRN PO .CONSTIPATION; Start 06/25/18 at 15:00 Albuterol/ Ipratropium (Duoneb) 3 ml Q6HWA RESP THERAPY HHN Last administered on 06/26/18at 08:13; Admin Dose 3 ML; Start 06/25/18 at 20:00 Albuterol/ Ipratropium (Duoneb) 3 ml Q2H RESP THERAPY PRN HHN shortness of breath; Start 06/25/18 at 15:00 Diagnostic Test (Pha) (Accu-Chek) 1 ea 02 XX ; Start 06/26/18 at 02:00 Digoxin (Digoxin) 0.125 mg DAILY@13 PO ; Start 06/26/18 at 13:00 Levothyroxine Sodium (Synthroid) 50 mcg BEFORE BREAKFAST PO Last administered on 06/26/18at 07:28; Admin Dose 50 MCG; Start 06/26/18 at 07:00 Losartan Potassium (Cozaar) 25 mg DAILY PO Last administered on 06/26/18at 10:36; Admin Dose 25 MG; Start 06/26/18 at 09:00 Spironolactone (Aldactone) 25 mg BID PO Last administered on 06/26/18at 10:35; Admin Dose 25 MG; Start 06/25/18 at 21:00 Atorvastatin Calcium (Lipitor) 80 mg HS PO Last administered on 06/25/18at 21:10; Admin Dose 80 MG; Start 06/25/18 at 21:00 Miscellaneous Information 1 ea NOTE XX ; Start 06/25/18 at 15:30 Glucose (Glutose) 15 gm Q15M PRN PO DECREASED GLUCOSE; Start 06/25/18 at 15:30 Glucose (Glutose) 22.5 gm Q15M PRN PO DECREASED GLUCOSE; Start 06/25/18 at 15:30 Dextrose (D50w Syringe) 25 ml Q15M PRN IV DECREASED GLUCOSE; Start 06/25/18 at 15:30 Dextrose (D50w Syringe) 50 ml Q15M PRN IV DECREASED GLUCOSE; Start 06/25/18 at 15:30 Glucagon (Glucagen) 1 mg Q15M PRN IM DECREASED GLUCOSE; Start 06/25/18 at 15:30 Glucose (Glutose) 15 gm Q15M PRN BUCCAL DECREASED GLUCOSE; Start 06/25/18 at 15:30 Furosemide (Lasix) 40 mg DAILY IV Last administered on 06/26/18at 10:37; Admin Dose 40 MG; Start 06/26/18 at 09:00 Carvedilol (Coreg) 6.25 mg BID PO Last administered on 06/26/18at 10:35; Admin Dose 6.25 MG; Start 06/25/18 at 21:00 Apixaban (Eliquis) 5 mg BID PO Last administered on 06/26/18at 10:35; Admin Dose 5 MG; Start 06/25/18 at 21:00 Insulin Aspart (Novolog Insulin Pen) NOVOLOG *MILD* ALGORITHM WITH MEALS BEDTIME SC ; Start 06/25/18 at 20:37 Zach Reed DO June 26, 2018 10:49
[2018-06-26 10:52] VITALS: BP 121/76; PULSE 104; RESP 20
[2018-06-26] MEDS ORDERED: DIGOXIN 0.125 MG TAB PO SCH (13:00)
== END 2018-06-26 11:30 | disposition home or self-care (01) ==
LOC: E/R 09:41 → INTOOBSV 14:43 → MS3 14:43 → OBSVTOIN 16:45 → INTOOBSV 16:45
PROVIDERS: ADMIT Internal Medicine; ATTEND Internal Medicine
DX: R07.9 Chest pain, unspecified (principal); I11.0 Hypertensive heart disease with heart failure; I50.23 Acute on chronic systolic (congestive) heart failure; E03.9 Hypothyroidism, unspecified; E78.5 Hyperlipidemia, unspecified; E11.9 Type 2 diabetes mellitus without complications; I48.91 Unspecified atrial fibrillation; Z79.82 Long term (current) use of aspirin; Z87.891 Personal history of nicotine dependence; Z79.01 Long term (current) use of anticoagulants
CPT/HCPCS: 36415; 71045; 80048; 80053; 80061; 82550; 82553; 82962; 83036; 83735; 83880; 84443; 84484; 85025; 85610; 93005; 93306; 94640; 94664; 97162; 99285; G0378; J1815; J1940